=== PATIENT | male | born 1955 | race Caucasian/White ===

== ENCOUNTER 2017-02-01 11:13 | Day surgery (SDC) | payer MEDICAID ==
[~2017-02-01] VITALS: Ht 180.3 cm; Wt 69.9 kg
[~2017-02-01 11:13] MED LIST: BALANCED SALT IRRIG SOLN COMB1 500ML OP SCH
[2017-02-01] MEDS ORDERED: TROPICAMIDE 1% OPHTH DROPS 15ML LEFTEYE ONE (12:10)
[2017-02-01] MEDS ORDERED: PHENYLEPHRINE HCL 10% OPHTH DROPS 5ML LEFTEYE ONE (12:10)
[2017-02-01] MEDS ORDERED: CYCLOPENTOLATE HCL 1% OPHTH DROPS 2ML LEFTEYE ONE (12:10)
[2017-02-01] MEDS ORDERED: LACTATED RINGERS 1,000 ML IV SCH (13:00)
[2017-02-01] MEDS ORDERED: NEO/POLYMYX B SULF/DEXAMETH OPHTH OINT 3.5GM ONE (13:18)
[2017-02-01] MEDS ORDERED: LIDOCAINE HCL/PF 2% 20 MG/ML 10ML VIAL ONE (13:18)
[2017-02-01] MEDS ORDERED: BALANCED SALT IRRIG SOLN 15ML ONE (13:18)
[2017-02-01] MEDS ORDERED: TETRACAINE 0.5% OPHTH DROPS 4ML ONE (13:18)
[2017-02-01] MEDS ORDERED: BUPIVACAINE HCL/PF 0.75% (7.5MG/ML) 10ML ONE (13:18)
[2017-02-01] MEDS ORDERED: LIDOCAINE HCL 2%/EPINEPHRINE 1:100,000 20 ML VIAL INFIL ONE (13:18)
[2017-02-01] MEDS ORDERED: CIPROFLOXACIN 0.3% OPHTH SOLN 2.5ML ONE (13:18)
[2017-02-01] MEDS ORDERED: PREDNISOLONE ACETATE 1% OPHTH DROPS 1ML ONE (13:18)
[2017-02-01] MEDS ORDERED: LIDOCAINE HCL 1% 20ML VIAL (Pyxis) INJ ONE (14:37)
[2017-02-01] MEDS ORDERED: PROPOFOL 200MG/20ML VIAL IV ONE (14:37)
[2017-02-01] MEDS ORDERED: HYALURONATE SODIUM 14 MG/ML 0.85ML SYRINGE IO ONE (14:40)
[2017-02-01] MEDS ORDERED: PREG50CA PO (14:50)
[2017-02-01] MEDS ORDERED: CYCL5TAB PO (14:50)
[2017-02-01] MEDS ORDERED: ALBU18HF2 IH (14:50)
[2017-02-01] MEDS ORDERED: ATOR20TA65 PO (14:50)
[2017-02-01] MEDS ORDERED: FENTANYL CITRATE/PF 50MCG/ML 2ML VIAL ONE (15:11)
[2017-02-01] MEDS ORDERED: MIDAZOLAM HCL 2 MG/2 ML VIAL ONE (15:11)
[2017-02-01] MEDS ORDERED: ONDANSETRON HCL 4MG/2ML VIAL IV PRN (16:30)
[2017-02-01] MEDS ORDERED: HYDROMORPHONE HCL/PF 2MG/ML CPJ IV PRN (16:30)
[2017-02-01] MEDS ORDERED: LABETALOL HCL 20MG/4ML CARPUJECT IV PRN (16:30)
[2017-02-01] MEDS ORDERED: MEPERIDINE HCL/PF 25MG/ML CPJ IV PRN (16:30)
== END 2017-02-01 17:30 | disposition home or self-care (01) ==
LOC: OR 11:13
PROVIDERS: ATTEND Ophthalmology
DX: H25.89 Other age-related cataract (principal); E78.00 Pure hypercholesterolemia, unspecified; J44.9 Chronic obstructive pulmonary disease, unspecified; E46 Unspecified protein-calorie malnutrition; F17.200 Nicotine dependence, unspecified, uncomplicated; C91.10 Chronic lymphocytic leukemia of B-cell type not having achieved remission; Z85.828 Personal history of other malignant neoplasm of skin
CPT/HCPCS: 66984; J2250; J3010; J3490; J7120; V2632; J2704

== ENCOUNTER 2017-09-06 09:42 | Day surgery (SDC) | payer MEDICAID ==
[~2017-09-06] VITALS: Ht 182.9 cm; Wt 71.7 kg
[~2017-09-06 09:42] MED LIST changes: +ALBU18HF2 IH; +ATOR20TA65 PO; -BALANCED SALT IRRIG SOLN COMB1 500ML OP SCH; +CYCL5TAB PO; +CYCLOPENTOLATE HCL 1% OPHTH DROPS 2ML RIGHTEYE ONE; +IBUP-2029 PO; +LACTATED RINGERS 1,000 ML IV SCH; +PHENYLEPHRINE HCL 10% OPHTH DROPS 5ML RIGHTEYE ONE; +PREG50CA PO; +TADA5TAB PO; +TROPICAMIDE 1% OPHTH DROPS 15ML RIGHTEYE ONE
[2017-09-06] MEDS ORDERED: HYALURONATE SODIUM 14 MG/ML 0.85ML SYRINGE IO ONE (10:26)
[2017-09-06] MEDS ORDERED: BALANCED SALT IRRIG SOLN COMB1 500ML OP NR (11:00)
[2017-09-06] MEDS ORDERED: FENTANYL CITRATE/PF 50MCG/ML 2ML VIAL ONE (11:21)
[2017-09-06] MEDS ORDERED: PROPOFOL 200MG/20ML VIAL IV ONE (11:22)
[2017-09-06] MEDS ORDERED: MIDAZOLAM HCL 2 MG/2 ML VIAL ONE (11:22)
[2017-09-06] MEDS ORDERED: LABETALOL 5MG/ML SYR 20 MG/4 ML SYRINGE IV PRN (11:45)
[2017-09-06] MEDS ORDERED: MEPERIDINE HCL/PF 25MG/ML CPJ IV PRN (11:45)
[2017-09-06] MEDS ORDERED: ONDANSETRON HCL 4MG/2ML VIAL IV PRN (11:45)
[2017-09-06] MEDS ORDERED: HYDROMORPHONE HCL/PF 2MG/ML CPJ IV PRN (11:45)
[2017-09-06] MEDS ORDERED: LIDOCAINE HCL/PF 1% 10 MG/ML 5ML VIAL ONE (12:21)
[2017-09-06] MEDS ORDERED: TETRACAINE 0.5% OPHTH DROPS 4ML ONE (14:21)
[2017-09-06] MEDS ORDERED: BALANCED SALT IRRIG SOLN 15ML ONE (14:21)
[2017-09-06] MEDS ORDERED: PREDNISOLONE ACETATE 1% OPHTH DROPS 1ML ONE (14:21)
[2017-09-06] MEDS ORDERED: BUPIVACAINE HCL/PF 0.75% (7.5MG/ML) 10ML ONE (14:21)
[2017-09-06] MEDS ORDERED: NEO/POLYMYX B SULF/DEXAMETH OPHTH OINT 3.5GM ONE (14:21)
[2017-09-06] MEDS ORDERED: CIPROFLOXACIN 0.3% OPHTH SOLN 2.5ML ONE (14:21)
[2017-09-06] MEDS ORDERED: LIDOCAINE HCL 2%/EPINEPHRINE 1:100,000 20 ML VIAL INFIL ONE (14:21)
== END 2017-09-06 12:35 | disposition home or self-care (01) ==
LOC: OR 09:42
PROVIDERS: ATTEND Ophthalmology
DX: H25.011 Cortical age-related cataract, right eye (principal); J44.9 Chronic obstructive pulmonary disease, unspecified; E78.00 Pure hypercholesterolemia, unspecified; J45.909 Unspecified asthma, uncomplicated; F17.200 Nicotine dependence, unspecified, uncomplicated; Z85.828 Personal history of other malignant neoplasm of skin; Z79.1 Long term (current) use of non-steroidal anti-inflammatories (NSAID); Z79.899 Other long term (current) drug therapy
CPT/HCPCS: 66984; J2250; J3010; J3490; J7120; V2632; J2704